=== PATIENT | male | born 1995 | race Two or more races ===

== ENCOUNTER 2021-05-05 06:33 | Outpatient (CLI) | payer OTHER | END 2021-05-05 06:34 | disposition home or self-care (01) | LOC: LAB 06:33 | PROVIDERS: ATTEND Obstetrics & Gynecology | DX: Z20.818 Contact with and (suspected) exposure to other bacterial communicable diseases (principal); Z20.828 Contact with and (suspected) exposure to other viral communicable diseases ==

== ENCOUNTER 2022-08-31 04:55 | Outpatient (CLI) | payer OTHER | END 2022-08-31 23:30 | disposition home or self-care (01) | LOC: LAB 04:55 | PROVIDERS: ATTEND Obstetrics & Gynecology | DX: Z20.818 Contact with and (suspected) exposure to other bacterial communicable diseases (principal); Z20.828 Contact with and (suspected) exposure to other viral communicable diseases ==